=== PATIENT | male | born 1950 | race Caucasian/White ===

== ENCOUNTER → 2018-04-09 | Outpatient (CLI) | payer MEDICARE, OTHER ==
[~2018-04-09] MED LIST: GABA-826 PO; LEVO25TA4 PO; [UNRECOGNIZED DRUG - OTHER]
== END | disposition home or self-care (01) ==
LOC: STAR 08:20
PROVIDERS: ATTEND Surgery
DX: Z01.818 Encounter for other preprocedural examination (principal)
CPT/HCPCS: 93005

== ENCOUNTER 2018-04-22 11:20 | Emergency (ER) | payer MEDICARE, OTHER ==
[~2018-04-22] VITALS: Ht 177.8 cm; Wt 116.3 kg
[~2018-04-22 11:20] MED LIST changes: +HYDR-3240 PO
[2018-04-22 12:27] VITALS: BP 122/70
== END 2018-04-22 12:34 | disposition home or self-care (01) ==
LOC: ED 12:00
DX: E89.0 Postprocedural hypothyroidism (principal)
CPT/HCPCS: 99283

== ENCOUNTER 2020-10-07 07:18 | Outpatient (CLI) | payer MEDICARE ==
[~2020-10-07 07:18] MED LIST changes: +HYDR-2214 PO; -HYDR-3240 PO
[2020-10-07] MEDS ORDERED: FINA5TAB4 PO (08:07)
[2020-10-07] MEDS ORDERED: LEVO50TA5 PO (08:07)
[2020-10-07] MEDS ORDERED: TAMS-11 PO (08:07)
[2020-10-07] MEDS ORDERED: ATOR20TA37 PO (08:07)
== END 2020-10-07 23:59 | disposition home or self-care (01) ==
LOC: STAR 07:18
PROVIDERS: ATTEND Urology
DX: Z01.812 Encounter for preprocedural laboratory examination (principal); Z20.822 Contact with and (suspected) exposure to COVID-19; R94.31 Abnormal electrocardiogram [ECG] [EKG]
CPT/HCPCS: 93005; U0003; U0005

== ENCOUNTER 2020-10-12 09:50 | Day surgery (SDC) | payer MEDICARE, OTHER ==
[~2020-10-12] VITALS: Ht 177.8 cm; Wt 120.9 kg
[~2020-10-12 09:50] MED LIST changes: +ATOR20TA37 PO; +FINA5TAB4 PO; +LEVO50TA5 PO; +TAMS-11 PO
[2020-10-12 10:50] VITALS: BP 134/83
[2020-10-12] MEDS ORDERED: LACTATED RINGERS 1,000 ML IV SCH (11:00)
[2020-10-12] MEDS ORDERED: CHLORHEXIDINE 15 ML UDC PO ONE (11:00)
[2020-10-12] MEDS ORDERED: ROCURONIUM 10MG/ML,5ML ONE (11:10)
[2020-10-12] MEDS ORDERED: NEOSTIGMINE 1 MG/ML, 10ML ONE (11:10)
[2020-10-12] MEDS ORDERED: GLYCOPYRROLATE 0.2MG/1ML, 5ML ONE (11:10)
[2020-10-12] MEDS ORDERED: PROPOFOL 10 MG/ML, 20ML ONE (11:10)
[2020-10-12] MEDS ORDERED: CEFAZOLIN 1,000 MG ONE (11:10)
[2020-10-12] MEDS ORDERED: FENTANYL PF 250 MCG/5ML ONE (11:45)
[2020-10-12] MEDS ORDERED: PHENYLEPHRINE 10 MG/ML ONE (12:04)
[2020-10-12] MEDS ORDERED: EPHEDRINE 50 MG/ML, 1ML IVPush PRN (13:00)
[2020-10-12] MEDS ORDERED: hydrALAzine 20 MG/ML, 1ML IV PRN (13:00)
[2020-10-12] MEDS ORDERED: FENTANYL PF 100 MCG/2ML IV PRN (13:00)
[2020-10-12] MEDS ORDERED: HALOPERIDOL 5 MG/ML IV PRN (13:00)
[2020-10-12] MEDS ORDERED: METHOCARBAMOL 1,000 MG in DEXTROSE 5% 100 ML IV PRN (13:00)
[2020-10-12] MEDS ORDERED: KETOROLAC 30 MG/1 ML IVPush PRN (13:00)
[2020-10-12] MEDS ORDERED: ONDANSETRON 2MG/ML, 2ML IVPush PRN (13:00)
[2020-10-12] MEDS ORDERED: LABETALOL 5MG/ML, 20ML IV PRN (13:00)
[2020-10-12] MEDS ORDERED: METOPROLOL 1 MG/ML, 5ML IV PRN (13:00)
[2020-10-12] MEDS ORDERED: DIPHENHYDRAMINE 50 MG/ML, 1ML IVPush PRN (13:00)
[2020-10-12] MEDS ORDERED: METOCLOPRAMIDE 5 MG/ML, 2ML IVPush PRN (13:00)
[2020-10-12] MEDS ORDERED: ACETAMINOPHEN 325 MG TABLET PO PRN (13:00)
[2020-10-12] MEDS ORDERED: PROMETHAZINE 25 MG/ML, 1ML IVPush PRN (13:00)
[2020-10-12] MEDS ORDERED: HYDROmorphone 1 MG/ML, 1ML INJ IVPush PRN (13:00)
[2020-10-12] MEDS ORDERED: ACETAMINOPHEN 650 MG/20.3 ML UDC ONE (13:37)
[2020-10-12] MEDS ORDERED: OXYcodone 5 MG/5 ML ORAL.SOL UDC ONE (13:37)
[2020-10-12] MEDS: OXYcodone 5 MG/5 ML ORAL.SOL UDC PO PRN ×2 (13:41→15:19)
[2020-10-12] MEDS ORDERED: FENTANYL PF 100 MCG/2ML ONE (13:52)
== END 2020-10-12 17:45 | disposition home or self-care (01) ==
LOC: OUT 09:50
PROVIDERS: ATTEND Urology
DX: N40.1 Benign prostatic hyperplasia with lower urinary tract symptoms (principal); N13.8 Other obstructive and reflux uropathy; R39.14 Feeling of incomplete bladder emptying; E29.1 Testicular hypofunction; E03.9 Hypothyroidism, unspecified; G47.33 Obstructive sleep apnea (adult) (pediatric); M10.9 Gout, unspecified; E66.9 Obesity, unspecified; Z68.36 Body mass index [BMI] 36.0-36.9, adult; Z79.890 Hormone replacement therapy; Z79.899 Other long term (current) drug therapy; Z85.51 Personal history of malignant neoplasm of bladder; Z86.73 Personal history of transient ischemic attack (TIA), and cerebral infarction without residual deficits; Z87.891 Personal history of nicotine dependence; Z82.49 Family history of ischemic heart disease and other diseases of the circulatory system; Z84.1 Family history of disorders of kidney and ureter
CPT/HCPCS: 52601; 88305; J0690; J2370; J2704; J2710; J3010; J7120